=== PATIENT | female | born 1965 | race Two or more races ===

== ENCOUNTER 2022-10-12 14:13 | Emergency (ER) | payer MEDICAID, OTHER ==
[~2022-10-12] VITALS: Ht 162.6 cm; Wt 77.1 kg
--- NOTE | 2022-10-12 14:29 | NUR ---
BIBS STATING THAT SHE HAS HAD NOSE BLEED SINCE 5 DAYS AGO, L ARM NUMBNESS, HX OF HTN AND STOPPED TAKING HER MEDICATION
[2022-10-12 15:50] LABS: BASOPHILS # (AUTO) 0.1 K/uL (0.0-0.2); EOSINOPHILS % (AUTO) 0.8 % (0.0-6.0); HEMATOCRIT 39 % (33-45); HEMOGLOBIN 12.7 g/dL (11.5-14.8); LYMPHOCYTES # (AUTO) 1.9 K/uL (0.8-4.8); LYMPHOCYTES % (AUTO) 26.1 % (20.0-44.0); MEAN CORPUSCULAR HGB CONC 33 g/dl (31.0-36.0); MEAN CORPUSCULAR VOLUME 89 fL (82-100); MONOCYTES # (AUTO) 0.5 K/uL (0.1-1.30); MONOCYTES % (AUTO) 6.5 % (2.0-12.0); NEUTROPHILS # (AUTO) 4.9 K/uL (1.8-8.9); NEUTROPHILS % (AUTO) 65.6 % (43.0-81.0); PLATELET COUNT (AUTO) 266 K/uL (150-450); RED BLOOD CELL COUNT(AUTO) 4.37 MIL/uL (4.0-5.2); WHITE BLOOD COUNT (AUTO) 7.4 K/uL (4.3-11.0)
[2022-10-12 16:09] LABS: ALANINE AMINOTRANSFERASE 74 U/L (12-78); ALBUMIN 3.7 g/dL (3.4-5.0); ALKALINE PHOSPHATASE 125 U/L (46-116); ASPARTATE AMINOTRANSFERASE 41 U/L (15-37); BILIRUBIN,DIRECT 0.1 mg/dL (0.0-0.2); BILIRUBIN,TOTAL 0.1 mg/dL (0.2-1.0); CALCIUM, SERUM 9.2 mg/dL (8.5-10.1); CARBON DIOXIDE 30 mmol/L (21-32); CHLORIDE 105 mmol/L (98-107); CREATININE 0.7 mg/dL (0.6-1.3); GLUCOSE 119 mg/dL (74-106); POTASSIUM 4.1 mmol/L (3.5-5.1); SODIUM SERUM 142 mmol/L (136-145); TOTAL PROTEIN, SERUM 7.3 g/dL (6.4-8.2); UREA NITROGEN, BLOOD 16 mg/dL (7-18)
[2022-10-12] MEDS ORDERED: AMLO-212 PO ×2 (16:34→19:46)
--- NOTE | 2022-10-12 17:00 | NUR ---
DISCHARGE WAS CANCELLED BY MD DUE TO ACTIVE NOSE BLEED.
--- NOTE | 2022-10-12 17:00 | NUR ---
TRANEXAMIC ACID APPLIED BY MD TO NARES TO STOP NOSEBLEEDING
[2022-10-12] MEDS ORDERED: OXYMETAZOLINE HCL NASAL SPRAY 30 ML BOTTLE NS ONE ×2 (17:08→17:30)
[2022-10-12] MEDS ORDERED: CLONIDINE HCL 0.1 MG TABLET ONE (17:08)
[2022-10-12] MEDS ORDERED: TRANEXAMIC ACID 1,000 MG/10 ML VIAL ONE (17:08)
[2022-10-12] MEDS ORDERED: TRANEXAMIC ACID 1,000 MG/10 ML VIAL NS ONE (17:30)
[2022-10-12] MEDS ORDERED: CLONIDINE HCL 0.1 MG TABLET PO ONE (17:30)
--- NOTE | 2022-10-12 18:15 | NUR ---
EMD ON BEDSIDE ATTENDING TO PATIENT NOSE BLEEDING
--- NOTE | 2022-10-12 18:52 | NUR ---
PATIENT STILL HAS NOSE BLEEDING LEFT NOSTRIL WITH PACK. PATIENT SAID, "PAIN LEFT NASAL AREA" 12/01
[2022-10-12] MEDS ORDERED: HYDR-3972 PO (19:44)
[2022-10-12 19:51] VITALS: BP 135/84
--- NOTE | 2022-10-12 19:51 | NUR ---
Patient discharged to home in stable condition. Written and verbal after care instructions given. Patient verbalizes understanding of instruction.
== END 2022-10-12 19:53 | disposition home or self-care (01) ==
LOC: ER 14:15
DX: R04.0 Epistaxis (principal); I10 Essential (primary) hypertension; Z79.899 Other long term (current) drug therapy
CPT/HCPCS: 99285; 71045; 30901; 93005; 85025; 80048; 80076; 36415; 84484; 85730; A6403

== ENCOUNTER 2022-10-13 16:20 | Emergency (ER) | payer OTHER ==
[~2022-10-13] VITALS: Ht 162.6 cm; Wt 77.1 kg
[~2022-10-13 16:20] MED LIST: AMLO-212 PO; HYDR-3972 PO
[2022-10-13 16:40] VITALS: BP 157/91
--- NOTE | 2022-10-13 16:59 | NUR ---
Patient discharged to home in stable condition ambulating. Written and verbal after care instructions given. Patient verbalizes understanding of instruction.
== END 2022-10-13 17:00 | disposition home or self-care (01) ==
LOC: ER 16:25
DX: R04.0 Epistaxis (principal); I10 Essential (primary) hypertension; Z79.899 Other long term (current) drug therapy

== ENCOUNTER 2022-10-15 18:41 | Emergency (ER) | payer OTHER ==
[~2022-10-15] VITALS: Ht 165.1 cm; Wt 90.7 kg
--- NOTE | 2022-10-15 18:45 | NUR ---
RECEIVED PT 57 YRS FEMALE CAME FROM HOME FOR ROMOVING RHINO.ROCKET ON LT NOSE INTACT
--- NOTE | 2022-10-15 19:00 | NUR ---
DR. MALCOLM AT BED FOR ROMOVING PACKING PT TARED BLEEDING PALN OF CARE TO MONITER PT FOR 15 MIN
[2022-10-15] MEDS ORDERED: OXYMETAZOLINE HCL NASAL SPRAY 30 ML BOTTLE NS ONE (19:18)
[2022-10-15] MEDS ORDERED: LIDOCAINE 1%-EPI 1:100,000 20 ML VIAL ONE (19:19)
--- NOTE | 2022-10-15 19:32 | NUR ---
HAND OFF SANTOS
[2022-10-15 20:25] VITALS: BP 158/98
--- NOTE | 2022-10-15 20:43 | NUR ---
Patient discharged to home in stable condition. Written and verbal after care instructions given. Patient verbalizes understanding of instruction.
== END 2022-10-15 20:43 | disposition home or self-care (01) ==
LOC: ER 18:49
DX: R04.0 Epistaxis (principal); I10 Essential (primary) hypertension; Z79.899 Other long term (current) drug therapy
CPT/HCPCS: J3490